=== PATIENT | female | born 1930 | race American Indian/Alaskan Native ===

== ENCOUNTER 2017-08-18 07:46 | Emergency (ER) | payer MEDICARE ==
[2017-08-18 07:46] VITALS: BMI 27.3
[2017-08-18 08:12] VITALS: BP 148/73; PULSE 102; RESP 18; TEMP 98; O2SAT 100
--- NOTE | 2017-08-18 09:19 | C.PDOC ---
History Of Present Illness 86 y/o female presents to the ER from a long-term for an indwelling Daigle catheter. Patient has been referred by her urologist, Dr. Schaefer. Of note, HPI is limited because patient has dementia. Time Seen by Provider: 08/18/17 08:18 Chief Complaint (Nursing): Female Genitourinary History Per: Patient History/Exam Limitations: clinical condition Past Medical History Reviewed: Historical Data, Nursing Documentation, Vital Signs Vital Signs: Last Vital Signs Temp 98 F 08/18/17 08:06 Pulse 102 H 08/18/17 08:06 Resp 18 08/18/17 08:06 BP 148/73 08/18/17 08:06 Pulse Ox 100 08/18/17 10:20 - Medical History PMH: Dementia Other Surgeries: Hx of surgeries - [facility] Procedures CATARAC PHACOEMULS/ASPIR (09/15/03) CENTRAL VENOUS CATHETER PLACEMENT WITH GUIDANCE (10/08/12) CONTR PHLEBOGRAM-HD/NECK (10/08/12) INSERT LENS AT CATAR EXT (09/15/03) PACKED CELL TRANSFUSION (10/08/12) TRABECULECTOM AB EXTERNO (09/15/03) Family History: States: No Known Family Hx - Social History Hx Alcohol Use: No Hx Substance Use: No - Immunization History Hx Influenza Vaccination: No Hx Pneumococcal Vaccination: No Review Of Systems Review Of Systems: ROS cannot be obtained secondary to pt's inabilty to answer questions. Physical Exam - Physical Exam Appears: No Acute Distress, Other (demented, obese, black female) Skin: Normal Color, Warm, Dry Head: Atraumatic, Normacephalic Eye(s): bilateral: Normal Inspection Nose: Normal Oral Mucosa: Moist Neck: Supple Chest: Symmetrical Cardiovascular: Rhythm Regular Respiratory: Normal Breath Sounds, No Rales, No Rhonchi, No Wheezing Extremity: Other (daigle catheter with right leg bag in place) Neurological/Psych: Other (demented) ED Course And Treatment O2 Sat by Pulse Oximetry: 100 (RA) Pulse Ox Interpretation: Normal Progress Note: 0900: evaled by Dr. Germania Schaefer @ bedside ED 11, ok to send back to [place] Medical Decision Making Medical Decision Making: chronic indwelling Daigle Cath, no acute issues. Dr. Schaefer to follow Disposition Doctor Will See Patient In The: Office Counseled Patient/Family Regarding: Studies Performed, Diagnosis - Disposition Referrals: Germania Schaefer MD [Staff Provider] - Disposition: HOME/ ROUTINE Disposition Time: 09:18 Condition: GOOD Additional Instructions: You were evaluated by Dr. Germania Schaefer today in the ED Your exam was normal He will follow-up with you @ your Long-Term. Instructions: Daigle Catheter, Female Forms: [facility] ([place]i) - Clinical Impression Clinical Impression: Daigle catheter in place - Scribe Statement The provider has reviewed the documentation as recorded by the Erikibe Bacilio Levy Provider Attestation: All medical record entries made by the Scribe were at my direction and personally dictated by me. I have reviewed the chart and agree that the record accurately reflects my personal performance of the history, physical exam, medical decision making, and the department course for this patient. I have also personally directed, reviewed, and agree with the discharge instructions and disposition.
[2017-08-18 09:24] LABS: SQUAMOUS EPITHIAL 1 /hpf (0-5); URINE BACTERIA OCC (<OCC); URINE BILIRUBIN NEGATIVE (NEGATIVE); URINE BLOOD NEGATIVE (NEGATIVE); URINE CLARITY Hazy (Clear); URINE COLOR Yellow (YELLOW); URINE GLUCOSE (UA) NORMAL (Normal); URINE LEUKOCYTE ESTERASE 3+ Leu/uL (Negative); URINE PROTEIN 2+ mg/dL (NEGATIVE); URINE UROBILINOGEN NORMAL mg/dL (0.2-1.0)
--- NOTE | 2017-08-19 17:00 | CON ---
UROLOGY CONSULTATION CONSULTATION REQUESTED BY: [facility] and by Dr. Pawel Franklin in the emergency room at [facility]. UROLOGY CONSULTATION FILLED BY: Dr. Germania Schaefer. REASON FOR CONSULTATION: Urinary retention. Urinary tract infection. HISTORY OF PRESENT ILLNESS: The patient is an 86-year-old female who has an indwelling Hancock catheter. The patient has history of previous urinary retention. The patient was hospitalized at [facility]. She was hospitalized for GI bleeding. The patient was also noted to have renal failure and urinary retention. She has had an indwelling Hancock catheter. There has been no recent fever or rigors. Fair appetite is reported. She reports normal bowel movements. She had a bowel movement yesterday. The patient has been having decreased mobility. She is mostly in the bed and a wheelchair. She is unable to ambulate. The patient has previous surgery including labor and delivery x2, thyroidectomy, and hysterectomy. Medications reviewed as well. Lab data reviewed as well. The patient is noted to have elevated creatinine. The patient is noted to have marked anemia. PHYSICAL EXAMINATION: GENERAL: The patient is a well-developed, well-nourished elderly female. The patient is with her son today. ABDOMEN: Soft, nontender, nondistended. No mass or organomegaly. Abdomen is overweight. BACK: No CVA tenderness. GENITOURINARY: Urine is clear via the Hancock catheter. IMPRESSION: Urinary retention. Probable urinary tract infection. Chronic kidney disease. Anemia. PLAN/RECOMMENDATIONS: Urine culture. Possible trial of voiding to follow. Possible need for further urologic intervention and evaluation. Possible need for cystogram, cystometrogram, and cystoscopy. Thank you for recommending the patient for Urology consultation. Germania Schaefer MD cc: [facility], [facility]
== END 2017-08-18 10:14 | disposition home or self-care (01) ==
LOC: C.ER 07:46
DX: Z46.6 Encounter for fitting and adjustment of urinary device (principal)